=== PATIENT | female | born 2000 | race African-American/Black ===

== ENCOUNTER 2020-09-18 13:43 | Inpatient (IN) ==
[2020-09-18] MEDS ORDERED: MEPERIDINE 50 MG/1 ML VIAL IV PRN (16:11)
[2020-09-18] MEDS ORDERED: ONDANSETRON 4 MG/2 ML VIAL IV PRN (16:11)
[2020-09-18] MEDS ORDERED: BUTORPHANOL 2 MG/ML VIAL IV PRN (16:11)
[2020-09-18 16:30] LABS: Hematocrit 25.8 VOL% (35.7-47.0); Hemoglobin 7.8 GM/DL (12.0-16.0); Immature Granulocytes Absolute 0.07 #; Lymphocytes # 1.5 10*3/uL (1.4-4.0); Mean Corpuscular HGB Conc 30.2 GM/DL (32-36); Mean Corpuscular Volume 84.9 FL (87-102); Mean Platelet Volume 10.7 FL (9.6-12.0); Monocytes % 5.6 % (1.7-12.7); NRBC # 0.02 10*3/uL; Neutrophils % 71.4 % (38.7-73.9); Platelet Count 232 T/CUMM (130-400); Red Blood Count 3.04 MC/CUMM (3.8-5.5); Red Cell Distribution Width 13.6 % (9.3-17.3); White Blood Count 6.9 T/CUMM (4-12)
[2020-09-18] MEDS: LACTATED RINGERS 1,000 ML IV SCH (16:42)
[2020-09-18 16:48] LABS: Alanine Aminotransferase 9 U/L (13-56); Albumin 2.9 G/DL (3.4-5.0); Alkaline Phosphatase 101 U/L (45-117); Aspartate Amino Transferase 12 U/L (0-37); Bilirubin,Total < 0.39 MG/DL (0.20-1.00); Blood Urea Nitrogen 5 MG/DL (7-18); Calcium 8.6 MG/DL (8.5-10.1); Carbon Dioxide 24 MMOL/L (21-32); Estimated Glom Filtration Rate 162 ML/MIN; Glucose 79 MG/DL (74-106); Osmolality,Calculated 270.7 MOS/KG (273-304); Potassium 3.4 MMOL/L (3.5-5.1); Sodium 138 MMOL/L (136-145); Total Protein 6.8 G/DL (6.4-8.2)
[2020-09-18] MEDS ORDERED: NIFEdipine 10 MG CAPSULE PO ONE (17:19)
[2020-09-18 18:19] LABS: INR 0.9; PT Patient Result 10.4 SECS (10.5-12.0); Partial Thromboplastin Time 26.2 SECS (23.9-33.8)
[2020-09-18 20:26] LABS: Bilirubin,Urine Negative (Negative); Blood, Urine Negative (Negative); Glucose,Urine (UA) Negative (Negative); Ketones,Urine 5 mg/dL (Negative); Mucus,Urine Occasional /LPF (Occasional); Nitrite,Urine Negative (Negative); Protein,Urine Negative; Squamous Epithelial Cell,Urine Occasional /HPF (0-10); Urine Appearance CLEAR (Clear); Urine Color Yellow (Yellow); Urine Specific Gravity 1.009 (1.001-1.035)
[2020-09-18 20:30] LABS: Protein/Creatinine Ratio,Urine 0.2 RATIO
[2020-09-19] MEDS ORDERED: OXYTOCIN/LR 20 UNIT/1,000 ML BAG IV SCH (02:00)
[2020-09-19] MEDS: LACTATED RINGERS 1,000 ML IV SCH (08:18)
[2020-09-19] MEDS ORDERED: TRANEXAMIC ACID 1,000 MG/10 ML VIAL ONE (10:11)
[2020-09-19] MEDS ORDERED: miSOPROStoL 200 MCG TABLET ONE (10:11)
[2020-09-19] MEDS ORDERED: OXYTOCIN/LR 20 UNIT/1,000 ML BAG IV ONE ×2 (10:11→13:24)
[2020-09-19] MEDS ORDERED: METHYLERGONOVINE 0.2 MG/1 ML AMP ONE (10:12)
[2020-09-19] MEDS ORDERED: CARBOPROST TROMETHAMINE 250 MCG/ML AMP IM ONE (10:12)
[2020-09-19] MEDS ORDERED: SODIUM CHLORIDE 0.9% 0 ML IV ONE (10:12)
[2020-09-19 10:52] LABS: Cord Venous Blood HCO3 21.2 MMOL/L; Cord Venous Blood PCO2 41.5 MMHG; Cord Venous Blood PO2 31.8
[2020-09-19] MEDS ORDERED: oxyCODONE/ACETAMINOPHEN 5-325 MG TABLET PO PRN ×2 (13:24)
[2020-09-19] MEDS ORDERED: MEASLES/MUMPS/RUBELLA VACCINE 0.5 ML VIAL SUBCUT ONE (13:24)
[2020-09-19] MEDS ORDERED: LANOLIN 50% CREAM 0.3 OZ TUBE TOP PRN (13:24)
[2020-09-19] MEDS ORDERED: BISACODYL 10 MG SUPP RECTAL PRN (13:24)
[2020-09-19] MEDS ORDERED: WITCH HAZEL PADS 100/JAR TOP PRN (13:24)
[2020-09-19] MEDS ORDERED: HYDROCORTISONE 2.5% RECTAL CREAM 30 GM TUBE TOP PRN (13:24)
[2020-09-19] MEDS ORDERED: RHO(D) IMMUNE GLOBULIN 300 MCG SYRINGE IM ONE (13:24)
[2020-09-19] MEDS ORDERED: ACETAMINOPHEN 325 MG TABLET PO PRN (13:24)
[2020-09-19] MEDS ORDERED: DIPH/TET/ACEL PERT BOOSTER VACCINE 0.5 ML VIAL IM ONE (13:24)
[2020-09-19] MEDS ORDERED: BENZOCAINE 20%/MENTHOL 0.5% SPRAY 56 GM CAN TOP PRN (13:24)
[2020-09-19] MEDS ORDERED: POTASSIUM CHLORIDE 20 MEQ TABLET PO PRN (13:26)
[2020-09-19] MEDS: IBUPROFEN 800 MG TABLET PO PRN (15:14)
[2020-09-19] MEDS ORDERED: FERROUS SULFATE 325 MG TABLET PO SCH (21:00)
[2020-09-19] MEDS: DOCUSATE SODIUM 100 MG CAPSULE PO SCH (21:01)
[2020-09-20 06:06] LABS: Basophils % 0.1 % (0.0-0.8); Eosinophils % 0.2 % (0.00-10.9); Hematocrit 22.7 VOL% (35.7-47.0); Hemoglobin 7.1 GM/DL (12.0-16.0); Immature Granulocytes % 0.6 %; Immature Granulocytes Absolute 0.05 #; Lymphocytes # 2.3 10*3/uL (1.4-4.0); Lymphocytes % 25.9 % (21.3-54.2); Mean Corpuscular HGB Conc 31.3 GM/DL (32-36); Mean Corpuscular Volume 83.8 FL (87-102); Mean Platelet Volume 11.1 FL (9.6-12.0); Monocytes % 5.1 % (1.7-12.7); Neutrophils % 68.1 % (38.7-73.9); Platelet Count 211 T/CUMM (130-400); Red Blood Count 2.71 MC/CUMM (3.8-5.5); Red Cell Distribution Width 13.5 % (9.3-17.3)
[2020-09-20] MEDS: DOCUSATE SODIUM 100 MG CAPSULE PO SCH ×2 (10:30→20:10)
[2020-09-20] MEDS: FERROUS SULFATE 325 MG TABLET PO SCH ×2 (10:30→20:10)
[2020-09-20 16:50] LABS: Hematocrit 23.7 VOL% (35.7-47.0); Hemoglobin 7.4 GM/DL (12.0-16.0)
[2020-09-20] MEDS: IBUPROFEN 800 MG TABLET PO PRN (20:10)
[2020-09-21 08:15] VITALS: BP 128/77
[2020-09-21] MEDS: DOCUSATE SODIUM 100 MG CAPSULE PO SCH (09:04)
[2020-09-21] MEDS: FERROUS SULFATE 325 MG TABLET PO SCH (09:05)
== END 2020-09-21 13:05 | disposition home or self-care (01) | DRG 560 ==
LOC: N.LDOUT 13:43 → N.LD 13:45 → N.OB 09-19 13:15
PROVIDERS: ADMIT Obstetrics & Gynecology; ATTEND Obstetrics & Gynecology